=== PATIENT | male | born 1960 | race Caucasian/White ===

== ENCOUNTER 2019-06-17 15:58 | Emergency (ER) | payer OTHER ==
[~2019-06-17] VITALS: Ht 195.6 cm; Wt 122.7 kg
[2019-06-17 16:16] VITALS: Ht 195.6 cm; Wt 122.7 kg
[2019-06-17] MEDS ORDERED: GLUCOPHAGE500 MG PO (16:18)
[2019-06-17] MEDS ORDERED: BYSTOLIC10 MG PO (16:18)
[2019-06-17] MEDS ORDERED: CHOLESTEROL MED (16:18)
[2019-06-17] MEDS ORDERED: AUGMENTIN 875-11 TAB PO (16:19)
[2019-06-17 17:54] LABS: BASOPHILS 0.2 % (0-2); EOSINOPHILS 1.9 % (0-7); HEMATOCRIT 41.1 % (42.0-54.0); IMMATURE GRANULOCYTES 0.4 % (0-5); LYMPHOCYTES 16.8 % (15-50); MCH 29.7 pg (26.0-34.0); MCHC 34.1 g/dL (31.0-37.0); MCV 87.1 fL (80.0-100.0); MEAN PLATELET VOLUME 9.4 fL (7.4-10.4); NEUTROPHILS 72.7 % (40-80); PLATELET COUNT 236 10x3/uL (130-400); RBC 4.72 10x6/uL (4.20-6.10); RDW 12.9 % (11.5-14.5); WBC 8.1 10x3/uL (4.8-10.8)
[2019-06-17 18:06] LABS: ALBUMIN 3.6 g/dL (3.4-5.0); ANION GAP 9.2 mmol/L (8-16); BILIRUBIN - TOTAL 0.88 mg/dL (0.2-1.3); CARBON DIOXIDE 29.7 mmol/L (21.0-32.0); CREATININE - SERUM 1.2 mg/dL (0.6-1.3); POTASSIUM - SERUM 3.9 mmol/L (3.5-5.1); PROTEIN - SERUM 7.9 g/dL (6.4-8.2)
[2019-06-17 23:09] VITALS: BP 126/80
== END 2019-06-17 22:55 | disposition other institution (70) ==
LOC: D.ER 15:58
PROVIDERS: Family Medicine
DX: J36 Peritonsillar abscess (principal); E11.9 Type 2 diabetes mellitus without complications

== ENCOUNTER → 2021-03-29 07:38 | Outpatient (CLI) | payer OTHER ==
[2019-06-17 16:16] VITALS: BMI 32.1
[~2021-03-29 07:38] MED LIST: AUGMENTIN 875-11 TAB PO; BYSTOLIC10 MG PO; CHOLESTEROL MED; GLUCOPHAGE500 MG PO
[2021-03-29 08:22] LABS: BASOPHILS 0.4 % (0-2); EOSINOPHILS 2.8 % (0-7); HEMATOCRIT 44.8 % (42.0-54.0); HEMOGLOBIN 15.3 g/dL (13.5-17.5); IMMATURE GRANULOCYTES 0.3 % (0-5); LYMPHOCYTE ABS# 1.16 10x3/uL (1.32-3.57); LYMPHOCYTES 16.4 % (15-50); MCH 30.5 pg (26.0-34.0); MCHC 34.2 g/dL (31.0-37.0); MCV 89.4 fL (80.0-100.0); MONOCYTES 7.8 % (2-11); NEUTROPHIL ABS# 5.13 10x3/uL (1.78-5.38); NEUTROPHILS 72.3 % (40-80); RBC 5.01 10x6/uL (4.20-6.10); RDW 13.1 % (11.5-14.5); WBC 7.1 10x3/uL (4.8-10.8)
[2021-03-29 08:24] LABS: PLATELET COUNT 186 10x3/uL (130-400)
[2021-03-29 08:44] LABS: APTT 27.5 SECONDS (22.8-39.4); INR 1.25 (0.85-1.17); PROTIME 14.5 SECONDS (11.6-15.0)
[2021-03-29 08:47] LABS: % SATURATION 29 % (15-55); IRON 102 ug/dl (35-150); TOTAL IRON BIND CAPACITY 347 ug/dl (260-445); UNSAT IRON BIND CAPACITY 245 ug/dl (150-375)
[2021-03-29 08:50] LABS: ALBUMIN 3.9 g/dL (3.4-5.0); ANION GAP 10.7 mmol/L (8-16); BILIRUBIN - DIRECT 0.27 mg/dL (0.00-0.30); BILIRUBIN - INDIRECT 2.39 mg/dL (0.00-1.00); BILIRUBIN - TOTAL 2.66 mg/dL (0.2-1.3); CALCIUM 8.9 mg/dL (8.5-10.1); CARBON DIOXIDE 27.5 mmol/L (21.0-32.0); CHOL - HDL RATIO 2.6 ratio (2.3-4.9); CREATININE - SERUM 1.1 mg/dL (0.6-1.3); LDL-HDL RATIO 1.4 ratio (1.5-3.5); POTASSIUM - SERUM 4.2 mmol/L (3.5-5.1); PROTEIN - SERUM 7.4 g/dL (6.4-8.2)
[2021-03-30 06:11] LABS: HAPTOGLOBIN 178 mg/dL (32-363)
[2021-03-30 09:12] LABS: HEPATITIS C ANTIBODY <0.1 (0.0-0.9)
[2021-03-30 13:10] LABS: ALPHA FETOPROTEIN -(TUMOR MRK) 4.1 ng/mL (0.0-8.3)
[2021-04-01 12:10] LABS: MITOCHONDRIAL ANTIBODY <20.0 Units (0.0-20.0); SMOOTH MUSCLE ABS (ACTIN) 7 Units (0-19)
== END | disposition home or self-care (01) ==
LOC: D.US 07:38
PROVIDERS: ATTEND Internal Medicine Gastroenterology
DX: K76.0 Fatty (change of) liver, not elsewhere classified (principal)